=== PATIENT | female | born 1970 | race African-American/Black ===

== ENCOUNTER 2019-04-19 01:26 | Emergency (ER) | payer MEDICAID ==
[~2019-04-19] VITALS: Ht 165.1 cm; Wt 61.2 kg
[2019-04-19 01:36] VITALS: BP_SYST 139
[2019-04-19 02:43] LABS: BASOPHILS # (AUTO) 0.1 K/uL (0.0-0.2); BASOPHILS % (AUTO) 1.2 % (0.0-2.0); EOSINOPHILS # (AUTO) 0.2 K/uL (0.0-0.4); EOSINOPHILS % (AUTO) 2.8 % (0.0-4.0); HEMATOCRIT 31.5 % (36-48); HEMOGLOBIN 10.7 g/dL (12.0-16.0); LYMPHOCYTES % (AUTO) 43.7 % (20.5-51.5); MEAN CORPUSCULAR HEMOGLOBIN 38 pg (27-31); MEAN CORPUSCULAR HGB CONC 34 % (32-36); MEAN CORPUSCULAR VOLUME 112 fL (79.0-98.0); MONOCYTES # (AUTO) 0.5 K/uL (0.0-1.0); MONOCYTES % (AUTO) 7.7 % (1.7-9.3); NEUTROPHILS % (AUTO) 44.6 % (40.0-70.0); PLATELET COUNT (AUTO) 260 K/uL (130-430); RED BLOOD CELL COUNT(AUTO) 2.82 MIL/uL (4.2-6.2); RED CELL DISTRIBUTION WIDTH 18.8 % (9.0-15.0); WHITE BLOOD COUNT (AUTO) 6.8 K/uL (4.8-10.8)
[2019-04-19 03:01] LABS: INR 1.3 (0.8-1.2); PROTHROMBIN TIME 12.9 SECS (9.5-12.5)
[2019-04-19 03:12] LABS: ALBUMIN 3.4 g/dL (3.4-4.8); CREATININE 0.6 mg/dL (0.55-1.30); TOTAL BILIRUBIN 0.5 mg/dL (0.0-1.0)
[2019-04-19 03:18] LABS: CALCIUM 8.5 mg/dL (8.4-11.0); POTASSIUM 2.7 mmol/L (3.5-5.1)
[2019-04-19] MEDS ORDERED: POTASSIUM CHLORIDE 20 MEQ TAB.PRT.SR PO ONE (03:30)
[2019-04-19] MEDS ORDERED: KCL 40 mEq in 100 mL (PREMIX) 100 ML IV ONE (03:30)
[2019-04-19] MEDS ORDERED: MAGNESIUM SULFATE 50 ML IV ONE (03:30)
[2019-04-19] MEDS ORDERED: KCL 20 mEq in 100 mL (PREMIX) 100 ML IV ONE ×2 (03:45→05:00)
[2019-04-19 17:09] VITALS: BP_SYST 109
== END 2019-04-19 17:09 | disposition home or self-care (01) ==
LOC: SED 01:26
DX: E87.6 Hypokalemia (principal); M79.662 Pain in left lower leg
CPT/HCPCS: 36415; 80053; 84703; 85025; 85610; 85730; 93971; 96365; 96366; 96368; 99284; J3475; J3480; 99283